=== PATIENT | female | born 1955 | race African-American/Black ===

== ENCOUNTER 2019-07-23 05:26 | Inpatient (IN) ==
[2019-07-23] MEDS ORDERED: SODIUM CHLORIDE 0.9% 1,000 ML IV STA (06:17)
[2019-07-23 07:54] LABS: Basophils # 0.1 10*3/uL (0.0-0.2); Basophils % 0.7 % (0.0-0.8); Eosinophils % 0.4 % (0.00-10.9); Hematocrit 34.8 VOL% (35.7-47.0); Hemoglobin 11.1 GM/DL (12.0-16.0); Immature Granulocytes % 0.5 %; Immature Granulocytes Absolute 0.04 #; Lymphocytes # 1.5 10*3/uL (1.4-4.0); Lymphocytes % 19.5 % (21.3-54.2); Mean Corpuscular HGB Conc 31.9 GM/DL (32-36); Mean Corpuscular Volume 92.6 FL (87-102); Mean Platelet Volume 10.9 FL (9.6-12.0); Neutrophils % 74.9 % (38.7-73.9); Platelet Count 218 T/CUMM (130-400); Red Blood Count 3.76 MC/CUMM (3.8-5.5); Red Cell Distribution Width 13.7 % (9.3-17.3); White Blood Count 7.6 T/CUMM (4-12)
[2019-07-23 08:05] LABS: PT Patient Result 10.7 SECS (9.6-12.2); Partial Thromboplastin Time 24.1 SECS (20.8-36.0)
[2019-07-23 08:14] LABS: Alanine Aminotransferase 20 U/L (13-56); Albumin 3.3 G/DL (3.4-5.0); Alkaline Phosphatase 57 U/L (45-117); Aspartate Amino Transferase 10 U/L (0-37); Bilirubin,Total < 0.39 MG/DL (0.2-1.0); Blood Urea Nitrogen 18 MG/DL (7-18); Calcium 8.9 MG/DL (8.5-10.1); Estimated Glom Filtration Rate 119 ML/MIN; Glucose 209 MG/DL (74-106); Total Protein 7.1 G/DL (6.4-8.3)
[2019-07-23] MEDS ORDERED: ACETAMINOPHEN 325 MG TABLET PO PRN (10:41)
[2019-07-23] MEDS ORDERED: ONDANSETRON 4 MG/2 ML VIAL IV PRN (10:41)
[2019-07-23] MEDS ORDERED: GLUCAGON 1 MG VIAL IM PRN (10:45)
[2019-07-23] MEDS ORDERED: DEXTROSE 50% 25 GM/50 ML VIAL IV PRN (10:45)
[2019-07-23 11:32] LABS: Risk Ratio 3.64; Thyroid Stimulating Hormone 1.35 uIU/ml (0.358-3.74); VLDL CHOLESTEROL 14.6 MG/DL
[2019-07-23 13:16] LABS: Hematocrit 29.8 VOL% (35.7-47.0); Hemoglobin 9.6 GM/DL (12.0-16.0)
[2019-07-23] MEDS ORDERED: INFLUENZA VIRUS VACCINE 0.5 ML SYRINGE IM ONE (13:49)
[2019-07-23] MEDS: INSULIN LISPRO 100 UNIT/ML SUBCUT SCH ×3 (13:54→20:44)
[2019-07-23] MEDS: SODIUM CHLORIDE 0.9% 1,000 ML IV SCH (13:54)
[2019-07-23 19:35] LABS: Hemoglobin 9.9 GM/DL (12.0-16.0)
[2019-07-23] MEDS ORDERED: POLYETHYLENE GLYCOL POWDER 255 GM BOTTLE PO ONE (20:05)
[2019-07-23] MEDS: SIMVASTATIN 20 MG TABLET PO SCH (20:41)
[2019-07-23] MEDS: METOPROLOL SUCCINATE XL 25 MG TABLET PO SCH (20:41)
[2019-07-23] MEDS: PANTOPRAZOLE 40 MG VIAL IV SCH (20:41)
[2019-07-23] MEDS: BISACODYL 5 MG TABLET PO SCH (20:41)
[2019-07-23] MEDS ORDERED: MAGNESIUM CITRATE 300 ML BOTTLE PO ONE (23:30)
[2019-07-24] MEDS: SODIUM CHLORIDE 0.9% 1,000 ML IV SCH ×3 (00:12→21:57)
[2019-07-24 02:59] LABS: Basophils % 0.4 % (0.0-0.8); Eosinophils # 0.1 10*3/uL (0.0-0.87); Eosinophils % 1.3 % (0.00-10.9); Hematocrit 27.7 VOL% (35.7-47.0); Immature Granulocytes % 0.2 %; Immature Granulocytes Absolute 0.02 #; Lymphocytes # 2.2 10*3/uL (1.4-4.0); Lymphocytes % 26.5 % (21.3-54.2); Mean Corpuscular HGB Conc 32.5 GM/DL (32-36); Mean Corpuscular Volume 92.3 FL (87-102); Mean Platelet Volume 10.8 FL (9.6-12.0); Monocytes % 6.7 % (1.7-12.7); Neutrophils % 64.9 % (38.7-73.9); Platelet Count 183 T/CUMM (130-400); Red Cell Distribution Width 13.9 % (9.3-17.3); White Blood Count 8.4 T/CUMM (4-12)
[2019-07-24] MEDS: BISACODYL 5 MG TABLET PO SCH ×2 (04:34→11:42)
[2019-07-24 08:04] LABS: Hematocrit 28.9 VOL% (35.7-47.0); Hemoglobin 9.3 GM/DL (12.0-16.0)
[2019-07-24 08:20] LABS: Calcium 8.6 MG/DL (8.5-10.1)
[2019-07-24] MEDS ORDERED: LABETALOL 100 MG/20 ML VIAL IV ONE (10:00)
[2019-07-24] MEDS ORDERED: LIDOCAINE 2% 5 ML VIAL ONE (10:00)
[2019-07-24] MEDS ORDERED: PROPOFOL 200 MG/20 ML VIAL IV ONE (10:00)
[2019-07-24] MEDS: INSULIN LISPRO 100 UNIT/ML SUBCUT SCH ×4 (10:32→21:57)
[2019-07-24] MEDS: PANTOPRAZOLE 40 MG VIAL IV SCH (10:33)
[2019-07-24] MEDS: VERAPAMIL SR 180 MG TABLET PO SCH (10:33)
[2019-07-24] MEDS: hydroCHLOROthiazide 25 MG TABLET PO SCH (10:33)
[2019-07-24] MEDS: METOPROLOL SUCCINATE XL 25 MG TABLET PO SCH ×2 (10:33→21:56)
[2019-07-24 12:55] LABS: Hematocrit 28.2 VOL% (35.7-47.0); Hemoglobin 9.1 GM/DL (12.0-16.0)
[2019-07-24 16:18] LABS: Hematocrit 26.6 VOL% (35.7-47.0); Hemoglobin 8.5 GM/DL (12.0-16.0)
[2019-07-24] MEDS: PANTOPRAZOLE 40 MG TABLET PO SCH (21:56)
[2019-07-24] MEDS: SIMVASTATIN 20 MG TABLET PO SCH (21:56)
[2019-07-25] MEDS: PANTOPRAZOLE 40 MG TABLET PO SCH (08:56)
[2019-07-25] MEDS: INSULIN LISPRO 100 UNIT/ML SUBCUT SCH ×2 (08:56→12:51)
[2019-07-25] MEDS: METOPROLOL SUCCINATE XL 25 MG TABLET PO SCH (08:57)
[2019-07-25] MEDS: VERAPAMIL SR 180 MG TABLET PO SCH (08:57)
[2019-07-25] MEDS: hydroCHLOROthiazide 25 MG TABLET PO SCH (08:57)
[2019-07-25] MEDS: SODIUM CHLORIDE 0.9% 1,000 ML IV SCH (08:59)
[2019-07-25 09:22] LABS: Basophils % 0.5 % (0.0-0.8); Eosinophils # 0.2 10*3/uL (0.0-0.87); Hematocrit 27.5 VOL% (35.7-47.0); Hemoglobin 8.9 GM/DL (12.0-16.0); Immature Granulocytes % 0.6 %; Immature Granulocytes Absolute 0.05 #; Lymphocytes # 2.5 10*3/uL (1.4-4.0); Lymphocytes % 31.3 % (21.3-54.2); Mean Corpuscular HGB Conc 32.4 GM/DL (32-36); Mean Corpuscular Volume 91.1 FL (87-102); Mean Platelet Volume 11.4 FL (9.6-12.0); Monocytes % 4.6 % (1.7-12.7); Platelet Count 192 T/CUMM (130-400); Red Blood Count 3.02 MC/CUMM (3.8-5.5); Red Cell Distribution Width 13.8 % (9.3-17.3); White Blood Count 8.1 T/CUMM (4-12)
[2019-07-25 09:57] LABS: Calcium 8.6 MG/DL (8.5-10.1); Osmolality,Calculated 281.3 MOS/KG (273-304)
[2019-07-25 11:31] VITALS: BP 179/86
[2019-07-25 11:33] LABS: Hematocrit 27.3 VOL% (35.7-47.0); Hemoglobin 8.9 GM/DL (12.0-16.0)
== END 2019-07-25 12:51 | disposition home or self-care (01) | DRG 378 ==
LOC: N.ED 05:26 → N.EDINP 09:32 → N.2E 13:25
PROVIDERS: ADMIT Hospitalist; ATTEND Hospitalist